=== PATIENT | female | born 1950 | race Caucasian/White ===

== ENCOUNTER 2016-09-08 07:53 | Day surgery (SDC) | payer MEDICARE ==
[~2016-09-08 07:53] MED LIST: LACTATED RINGERS 1,000 ML IV SCH
[2016-09-08] MEDS ORDERED: IV START KIT ONE (07:59)
[2016-09-08] MEDS ORDERED: LACTATED RINGERS 1,000 ML ONE (07:59)
[2016-09-08] MEDS ORDERED: FENTANYL 100 MCG/2 ML VIAL ONE (08:24)
[2016-09-08] MEDS ORDERED: PROPOFOL 20 ML IV ONE (09:46)
== END 2016-09-08 10:00 | disposition home or self-care (01) ==
LOC: SDC 07:53
PROVIDERS: ATTEND Internal Medicine Gastroenterology
PROC: 0DJD8ZZ Inspection of Lower Intestinal Tract, Via Natural or Artificial Opening Endoscopic (ICD-10-PCS; principal; 2016-09-08)
DX: Z12.11 Encounter for screening for malignant neoplasm of colon (principal); K57.30 Diverticulosis of large intestine without perforation or abscess without bleeding; I10 Essential (primary) hypertension; E78.5 Hyperlipidemia, unspecified; Z88.1 Allergy status to other antibiotic agents
CPT/HCPCS: 45378; J3010; J7120